=== PATIENT | female | born 1965 | race Caucasian/White ===

== ENCOUNTER 2019-01-28 09:21 | Emergency (ER) | payer BC ==
[~2019-01-28] VITALS: Ht 160 cm; Wt 75.7 kg
--- NOTE | 2019-01-28 09:31 | NUR ---
PATIENT ARRIVED AT [facility] WITH C/O LOWER BACK PAIN RADIATING TO LEFT LEG 10/ PS, SINCE SUNDAY. PATIENT ON BED, CONNECTED TO MONITOR. PATIENT A/O X 4. NO ACUTE DISTRESS. DR MEEHAN AT BEDSIDE. WILL CONTINUE TO MONITOR ACCORDINGLY
[2019-01-28] MEDS ORDERED: HYDROCODONE/APAP 5/325MG 1 EACH TABLET ONE (09:40)
--- NOTE | 2019-01-28 09:48 | NUR ---
Patient discharged to home in stable condition, accompanied by . Written and verbal after care instructions given. Patient verbalizes understanding of instruction. Written prescription provided to patient.
[2019-01-28 09:49] VITALS: BP 110/78
[2019-01-28] MEDS ORDERED: HYDROCODONE/APAP 5/325MG 1 EACH TABLET PO ONE (10:00)
== END 2019-01-28 09:49 | disposition home or self-care (01) ==
LOC: ER 09:23
DX: M54.5 Low back pain (principal)

== ENCOUNTER 2019-02-03 19:24 | Emergency (ER) | payer BC, OTHER ==
[~2019-02-03] VITALS: Ht 160 cm; Wt 76.7 kg
[2019-02-03 19:32] VITALS: BP 134/83
--- NOTE | 2019-02-03 19:54 | NUR ---
RAMAN CHURCHILL A PAC at the bed side
[2019-02-03] MEDS ORDERED: HYDROCODONE/APAP 5/325MG 1 EACH TABLET PO ONE (20:00)
[2019-02-03] MEDS ORDERED: KETOROLAC TROMETHAMINE INJ 60 MG/2 ML VIAL IM ONE ×2 (20:00→20:03)
[2019-02-03] MEDS ORDERED: HYDROCODONE/APAP 5/325MG 1 EACH TABLET ONE (20:03)
--- NOTE | 2019-02-03 20:22 | NUR ---
Patient discharged to home in stable condition. rx and Written and verbal after care instructions given. Patient verbalizes understanding of instruction.
== END 2019-02-03 20:23 | disposition home or self-care (01) ==
LOC: ER 19:24
DX: M54.5 Low back pain (principal)
CPT/HCPCS: 96372; 99283; J1885